=== PATIENT | female | born 1950 | race Caucasian/White ===

== ENCOUNTER 2023-05-03 08:13 | Outpatient (CLI) | payer MEDICARE, SELFPAY ==
--- NOTE | 2023-05-04 08:37 | WPDPFTINT ---
PFT Procedure Performed PFT Procedure Performed Plethysmography (Lung Vol) Diffusing Cap (DLCO) Flow Vol Loop Spirometry w/o Bronchodil PFT Interpretation Lung volumes were measured with the body plethysmography method. The diminished lung volumes are indicative of restrictive respiratory disease. Spirometry showed diminished expiratory flow rates and a normal FEV1 to FVC ratio of 77%, also consistent with restrictive respiratory disease. Lung diffusion capacity is moderately reduced at 59% predicted. The flow-volume loop is consistent with restrictive respiratory disease. Impression: Moderate restrictive respiratory disease, moderately reduced lung diffusion capacity.
== END 2023-05-03 08:14 | disposition home or self-care (01) ==
PROVIDERS: PCP Pediatrics; Visit Provider Pediatrics
DX: R53.83 Other fatigue (principal); R06.00 Dyspnea, unspecified; R94.2 Abnormal results of pulmonary function studies
CPT/HCPCS: 94375; 94726; 94729

== ENCOUNTER → 2023-05-04 13:26 | Outpatient (CLI) | payer MEDICARE, SELFPAY ==
--- NOTE | ~2023-05-04 | CT_ITS ---
EXAMINATION: CT diagnostic chest w con DATE: 05/04/2023 14:01 INDICATION: Fatigue, dyspnea on exertion TECHNIQUE: Transaxial computed tomographic images of the chest were obtained after the administration of 75 cc of Omnipaque 350 intravenous contrast. The dose-length product (DLP) was 326.41 mGy-cm. Ite rative reconstruction was used. COMPARISON: None FINDINGS: There is mild dependent atelectasis. The lungs are free of focal airspace opacities. There is a small right pleural effusion. There is left atrial enlargement of the heart. A dual-lead cardiac pacemaker of the left chest wall ends with leads in expected locations. There are 45 degrees of thor acolumbar dextroscoliosis. There is a trace pericardial effusion. Cysts of the liver measure up to 9. 4 cm in the right hepatic lobe. IMPRESSION: 1. Small right pleural effusion. 2. Trace pericardial effusion. Reviewed, dictated and finalized at location B.
[2023-05-04 13:50] LABS: Estimated Glomerular Filt Rate 40
== END ==
PROVIDERS: PCP Pediatrics; Visit Provider Pediatrics
DX: J90 Pleural effusion, not elsewhere classified (principal); I31.39 Other pericardial effusion (noninflammatory)
CPT/HCPCS: 71260; Q9967

== ENCOUNTER → 2023-10-27 09:46 | Outpatient (CLI) | payer MEDICARE, SELFPAY ==
--- NOTE | ~2023-10-27 | DEXA_ITS ---
Bone Density Report Name: MEHREEN GARCES Age: 73 Sex: Female Ethnicity: White Date of : 1950 Indication: postmenopausal; screening for osteoporosis; height loss; prior fracture; asthma or emphysema; Referring Provider: BONNIE LANCE Study: Bone densitometry was performed. Exam Date: October 27, 2023 Accession number: [id number] Bone Density: Region BMD T-score Z-score Classification AP Spine (L1-L4) 1.057 0.1 2.4 Normal Femoral Neck (Left) 0.658 -1.7 0.3 Osteopenia Total Hip (Left) 0.770 -1.4 0.3 Osteopenia Femoral Neck (Right) 0.719 -1.2 0.9 Osteopenia Total Hip (Right) 0.774 -1.4 0.4 Osteopenia Total Hip Mean 0.772 -1.4 0.4 Osteopenia World Health Organization criteria for BMD impression classify patients as: Normal (T-score at or above -1.0), Osteopenia (T-score between -1.0 and -2.5), or Osteoporosis (T-score at or below -2.5). 10-year Fracture Risk(1): Major Osteoporotic Fracture 17% Hip Fracture 3.2% Reported Risk Factors: [place] (), Neck BMD=0.658, BMI=35.7, previous fracture (1) FRAX(R) Version 3.08. Fracture probability calculated for an untreated patient. Fracture probability may be lower if the patient has received treatment. Clinical Information Provided by Patient: Has had a low trauma fracture Has used the following medications: Vitamin D Has the following medical conditions: Asthma or Emphysema Patient maximum height was 66 Menopause Age: 45 No regular weight bearing exercise Does not regularly consume dairy products Onset of menses at age 12 Number of children 1 Impression: The patient has low bone mass, based on the Left Femoral Neck T-score. The patient has an estimated ten-year risk of hip fracture of 3.2% and an estimated ten-year risk of major fracture of 17%, based on the WHO FRAX algorithm. The patient has risk factors, including: previous fracture. Discussion: BONE DENSITY IS LOW AT ONE OR MORE SKELETAL SITES. THE PATIENT'S BMD AND CLINICAL RISK FACTORS CONTRIBUTE TO THIS PATIENT'S INCREASED RISK OF FRACTURE. This patient's lowest T-score is low at one or more skeletal sites. It meets the World Health Organization's (WHO) criteria for ?low bone mass? (T-score between -1.0 and -2.5). The patient's 10-year risk of hip fracture as calculated by FRAX exceeds the threshold where pharmacological therapy is recommended by the National Osteoporosis Foundation (NOF). However, all treatment decisions require clinical judgment and consideration of individual patient factors, including patient preferences, comorbidities, previous drug use, risk factors not captured in the FRAX model (e.g., frailty, falls, vitamin D deficiency, increased bone turnover, interval significant decline in bone density) and possible under or overestimation of fracture risk by FRA
== END ==
PROVIDERS: PCP Pediatrics; Visit Provider Pediatrics
DX: Z12.31 Encounter for screening mammogram for malignant neoplasm of breast (principal); Z78.0 Asymptomatic menopausal state; M85.89 Other specified disorders of bone density and structure, multiple sites
CPT/HCPCS: 77080

== ENCOUNTER 2025-01-23 10:02 | Outpatient (CLI) | payer MEDICARE, SELFPAY ==
--- NOTE | ~2025-01-23 | CT_ITS ---
CT Scan of the Chest without Contrast: Clinical Indication: Restrictive lung disease Technique: Contiguous sections were acquired throughout the chest without intravenous contrast. Dose reduction technique was used on this scan by utilizing automated exposure control and iterative recon struction technique. The dose-length product (DLP) was 402.06 mGy-cm. COMPARISON: 05/04/2023 Findings: There is no evidence of any significant mediastinal, hilar or axillary lymphadenopathy. There is card iomegaly, as well as small pericardial effusion. Pacemaker device present. Minimal bilateral pleural effusions are present. There is probable minimal subpleural reticular lesion and minimal chronic interstitial disease. Images through the upper abdomen reveal multiple hepatic cysts. Dextroscoliosis of the thoracic spine noted. Impression: Minimal chronic interstitial disease. Minimal pleural effusions. Small pericardial effusion. Reviewed, dictated and finalized at [facility]. Impression: Minimal chronic interstitial disease. Minimal pleural effusions. Small pericardial effusion.
== END 2025-01-23 10:03 | disposition home or self-care (01) ==
LOC: MICIMG 10:03
PROVIDERS: PCP Pediatrics
DX: I31.39 Other pericardial effusion (noninflammatory) (principal); J98.4 Other disorders of lung; J84.9 Interstitial pulmonary disease, unspecified
CPT/HCPCS: 71250